=== PATIENT | female | born 1990 | race Caucasian/White ===

== ENCOUNTER 2017-07-24 18:00 | Inpatient (IN) | payer BC, OTHER ==
[2017-07-24 18:39] LABS: Amnisure Test RUPTURE DETECTED (No Rupture)
[2017-07-24 18:40] LABS: Amnisure Internal Control QC ACCEPTABLE (ACCEPTABLE)
[2017-07-24 18:49] VITALS: BMI 38.4
[2017-07-24] MEDS ORDERED: Promethazine HCl 25 MG/ML VIAL IM PRN ×2 (19:09→22:40)
[2017-07-24] MEDS ORDERED: Ondansetron HCl/PF 4 MG/2 ML Vial IVP PRN ×2 (19:09→22:40)
[2017-07-24] MEDS ORDERED: Acetaminophen 500 MG TAB PO PRN (19:09)
[2017-07-24] MEDS ORDERED: LR 500 ML/Oxytocin 10 units 500 ML IV SCH ×2 (19:15)
[2017-07-24] MEDS ORDERED: LR / Pitocin 40 units/1000 ml 40 UNITS/1,000 ML BAG IV SCH (19:15)
[2017-07-24] MEDS ORDERED: Lidocaine 1% (PF) 30 ML VIAL SC PRN (19:15)
[2017-07-24] MEDS ORDERED: Ibuprofen 800 MG TAB PO PRN (19:15)
[2017-07-24 20:54] LABS: Hemoglobin 12.1 g/dL (12.0-16.0); Mean Corpuscular HGB CONC 33.4 g/dL (32.0-36.0); Mean Corpuscular Hemoglobin 27.9 pg (27.0-31.0); Mean Corpuscular Volume 83.5 fl (81.0-99.0); Mean Platelet Volume 8.5 fL (7.4-10.4); Platelet Count 219 thou/uL (130-400); RBC Distribution Width 13.8 % (11.5-14.5); Red Blood Cell (RBC) Count 4.35 mill/uL (4.20-5.40); White Blood Cell (WBC) Count 12.6 thou/uL (4.8-10.8)
[2017-07-24 21:33] LABS: Syphilis Antibody Nonreactive (Nonreactive); Syphilis Antibody Index 0.02 S/CO (<1.00 Non-Reactive)
[2017-07-24] MEDS ORDERED: DISCONTINUE ALL PREVIOUS NARCOTICS FS SCH (22:00)
[2017-07-24] MEDS: Lactated Ringer's 1,000 ML IV SCH ×2 (22:02→23:13)
[2017-07-24] MEDS ORDERED: Lactated Ringer's 500 ML IV PRN (22:40)
[2017-07-24] MEDS ORDERED: Acetaminophen 325 MG TAB PO PRN (22:40)
[2017-07-24] MEDS ORDERED: Naloxone HCl 0.4 mg/ml Vial IVP PRN ×2 (22:40)
[2017-07-24] MEDS ORDERED: Eucerin (Mineral Oil/Petrolatum,White) 30 gm Jar TOP PRN (22:40)
[2017-07-24] MEDS ORDERED: diphenhydrAMINE 50 MG/ML VIAL IVP PRN (22:40)
[2017-07-24] MEDS ORDERED: ePHEDrine/0.9% NaCl/PF SYRINGE 50 mg/10 ml SLOW IVP PRN (22:40)
[2017-07-24] MEDS: Bupivacaine 0.5% 20 ML, Fentanyl 400 MCG in Sodium Chloride 0.9% 72 ML EPIDURAL SCH (22:40)
[2017-07-24] MEDS ORDERED: Communication Order-Pharmacy FS SCH (22:45)
[2017-07-24] MEDS ORDERED: Fentanyl 4mcg/Marcaine 0.1% Cassette 100 ML EPIDURAL SCH (22:45)
[2017-07-25 00:02] LABS: HBSAg Index 0.11 S/CO (0-0.99); Hep B Surf Ag Non-Reactive S/CO (NonReactive)
[2017-07-25] MEDS: Lactated Ringer's 1,000 ML IV SCH (04:53)
[2017-07-25] MEDS: Bupivacaine 0.5% 20 ML, Fentanyl 400 MCG in Sodium Chloride 0.9% 72 ML EPIDURAL SCH (05:11)
[2017-07-25] MEDS ORDERED: Ampicillin 2 GM, Syringe 5.2 ML in Sterile Water 14.8 ML SLOW IVP SCH (10:00)
[2017-07-25] MEDS ORDERED: Bupivacaine 0.25% 10 ML VIAL ONE (11:11)
[2017-07-25] MEDS ORDERED: Adacel (T-DAP) 0.5 ML VIAL IM ONE (12:20)
[2017-07-25] MEDS ORDERED: diphenhydrAMINE 25 MG CAP PO PRN (12:20)
[2017-07-25] MEDS ORDERED: Bisacodyl 10 MG SUPP PR PRN (12:20)
[2017-07-25] MEDS ORDERED: Ondansetron HCl/PF 4 MG/2 ML Vial IVP PRN (12:20)
[2017-07-25] MEDS ORDERED: Acetaminophen/Codeine 30-300mg Tablet PO PRN (12:20)
[2017-07-25] MEDS ORDERED: Zolpidem Tartrate 5 MG TAB PO PRN (12:20)
[2017-07-25] MEDS ORDERED: Milk Of Magnesia 30 ML UDCUP PO PRN (12:20)
[2017-07-25] MEDS ORDERED: Preparation H Ointment 28 GM TUBE PR PRN (12:20)
[2017-07-25] MEDS ORDERED: Lanolin Ointment 7 GM TUBE TOP PRN (12:20)
[2017-07-25] MEDS ORDERED: LR / Pitocin 40 units/1000 ml 1,000 ML IV SCH (12:30)
[2017-07-25] MEDS: Ibuprofen 800 MG TAB PO SCH ×2 (14:21→21:50)
[2017-07-25] MEDS: Ferrous Sulfate 325 MG TAB PO SCH (16:21)
[2017-07-25] MEDS: Acetaminophen/Codeine 30-300mg Tablet PO PRN ×2 (17:13→22:38)
[2017-07-25] MEDS: Ampicillin/Sulbactam 3 GM in Sodium Chloride 0.9% 100 ML IVPB SCH (17:57)
[2017-07-25] MEDS: Docusate Calcium (SURFAK) 240 MG CAP PO SCH (21:51)
[2017-07-26] MEDS: Ampicillin/Sulbactam 3 GM in Sodium Chloride 0.9% 100 ML IVPB SCH (00:51)
[2017-07-26 05:42] LABS: Hemoglobin 11.2 g/dL (12.0-16.0); Mean Corpuscular Hemoglobin 27.9 pg (27.0-31.0); Mean Corpuscular Volume 87.1 fl (81.0-99.0); Mean Platelet Volume 8.5 fL (7.4-10.4); Platelet Count 188 thou/uL (130-400); RBC Distribution Width 14.1 % (11.5-14.5); Red Blood Cell (RBC) Count 4.01 mill/uL (4.20-5.40); White Blood Cell (WBC) Count 16.2 thou/uL (4.8-10.8)
[2017-07-26] MEDS: Ibuprofen 800 MG TAB PO SCH ×3 (06:04→21:38)
[2017-07-26] MEDS: Docusate Calcium (SURFAK) 240 MG CAP PO SCH ×2 (08:18→21:38)
[2017-07-26] MEDS: Acetaminophen/Codeine 30-300mg Tablet PO PRN ×2 (08:18→18:37)
[2017-07-26] MEDS: Ferrous Sulfate 325 MG TAB PO SCH ×2 (08:18→12:58)
[2017-07-26] MEDS: Prenatal Vitamin 1 TAB PO SCH (08:18)
[2017-07-27] MEDS: Ibuprofen 800 MG TAB PO SCH (05:19)
[2017-07-27 07:50] VITALS: BP 121/67; TEMP 98.4
[2017-07-27] MEDS: Ferrous Sulfate 325 MG TAB PO SCH (08:44)
[2017-07-27] MEDS: Prenatal Vitamin 1 TAB PO SCH (08:45)
[2017-07-27] MEDS: Docusate Calcium (SURFAK) 240 MG CAP PO SCH (08:45)
== END 2017-07-27 12:07 | disposition home or self-care (01) | DRG 774 ==
LOC: L&D/OP 18:00 → L&D 19:04 → 3SW 07-25 15:00
PROVIDERS: ADMIT Obstetrics & Gynecology; ATTEND Obstetrics & Gynecology
PROC: 10E0XZZ Delivery of Products of Conception, External Approach (ICD-10-PCS; principal; 2017-07-25)
PROC: 0KQM0ZZ Repair Perineum Muscle, Open Approach (ICD-10-PCS; 2017-07-25)
DX: O98.52 Other viral diseases complicating childbirth (principal); O75.2 Pyrexia during labor, not elsewhere classified; B00.9 Herpesviral infection, unspecified; Z37.0 Single live birth; Z3A.40 40 weeks gestation of pregnancy; O70.1 Second degree perineal laceration during delivery
CPT/HCPCS: 36415; 51702; 84112; 85027; 86780; 86850; 86900; 86901; 87340; 88307; 90715; 99285; A4216; J0290; J0295; J1200; J2001; J3010; J3490; J7050; J7120; S0020

== ENCOUNTER 2019-01-10 08:57 | Outpatient (CLI) | payer MEDICAID ==
--- NOTE | 2019-01-10 09:34 | ULT ---
US Pelvic W Doppler History: Lost intrauterine device Comparison: None. Findings: Real-time grayscale and color evaluation of the pelvis was performed transabdominal approac h. Uterus measures 8 x 6.3 x 4.5 cm with endometrial thickness of 4 mm. Right ovary measures 3.3 x 2.3 x 2.7 cm with a 1.7 cm cyst. Adequate vascular flow. Left ovary measur es 2.7 x 2 x 1.9 cm with adequate vascular flow. /Check location of the intrauterine device within the fundal endometrial cavity. Impression: Intrauterine device within the fundal endometrial cavity.
== END 2019-01-10 08:58 | disposition home or self-care (01) ==
LOC: BICULT 08:57
PROVIDERS: ATTEND Family Medicine
DX: T83.32XA Displacement of intrauterine contraceptive device, initial encounter (principal)
CPT/HCPCS: 76856; 93976

== ENCOUNTER 2021-11-07 10:20 | Outpatient (CLI) | payer MEDICAID | END 2021-11-07 10:21 | disposition home or self-care (01) | LOC: BICMAMMO 10:20 | PROVIDERS: ATTEND Family Medicine | DX: N63.10 Unspecified lump in the right breast, unspecified quadrant (principal) | CPT/HCPCS: 77066; G0279 ==